=== PATIENT | male | born 1985 | race Caucasian/White ===

== ENCOUNTER 2017-10-09 15:06 | Inpatient (IN) | payer OTHER ==
[2017-10-09] MEDS: NICOTINE 21MG/24HR 1 EA TRANSDERMAL TD ×2 (09:00→16:00)
[2017-10-09] MEDS ORDERED: ACETAMINOPHEN TAB 650MG DOSE (2X325MG) PO (17:15)
[2017-10-09] MEDS ORDERED: MAALOX 30 ML SUSP *UDC PO (17:15)
[2017-10-09] MEDS ORDERED: MOM 30ML SUSPENSION UDC PO (17:15)
[2017-10-09] MEDS: traZODone 50 MG TAB PO (20:54)
[2017-10-09] MEDS: buPROPion **XL** TABLET 150MG (WELLBUTRIN XL) PO (20:54)
[2017-10-10] MEDS: buPROPion **XL** TABLET 150MG (WELLBUTRIN XL) PO (08:26)
[2017-10-10] MEDS: NICOTINE 21MG/24HR 1 EA TRANSDERMAL TD (08:26)
[2017-10-10] MEDS ORDERED: ANUSOL HC CREAM 30GM TOP (13:15)
[2017-10-10] MEDS: traZODone 50 MG TAB PO (20:58)
[2017-10-11] MEDS: NICOTINE 21MG/24HR 1 EA TRANSDERMAL TD (08:14)
[2017-10-11] MEDS: buPROPion **XL** TABLET 150MG (WELLBUTRIN XL) PO (08:14)
[2017-10-11] MEDS: PREPARATION H OINTMENT (HEMORRHOID) PR ×2 (14:18→21:09)
[2017-10-11] MEDS: traZODone 50 MG TAB PO (21:09)
[2017-10-12] MEDS: NICOTINE 21MG/24HR 1 EA TRANSDERMAL TD (08:26)
[2017-10-12] MEDS: buPROPion **XL** TABLET 150MG (WELLBUTRIN XL) PO (08:26)
[2017-10-12] MEDS: traZODone 50 MG TAB PO (21:01)
[2017-10-13] MEDS: buPROPion **XL** TABLET 150MG (WELLBUTRIN XL) PO (06:27)
== END 2017-10-13 07:00 | disposition home or self-care (01) | DRG 751 ==
LOC: M ED 15:06 → M ED INP 17:17 → M PSY 17:38
DX: F33.2 Major depressive disorder, recurrent severe without psychotic features (principal); R45.851 Suicidal ideations; F19.94 Other psychoactive substance use, unspecified with psychoactive substance-induced mood disorder; F15.90 Other stimulant use, unspecified, uncomplicated; F11.90 Opioid use, unspecified, uncomplicated; F60.89 Other specific personality disorders; F17.210 Nicotine dependence, cigarettes, uncomplicated